=== PATIENT | male | born 1990 | race African-American/Black ===

== ENCOUNTER 2018-11-28 13:20 | Emergency (ER) | payer BC, MEDICAID ==
[~2018-11-28] VITALS: Ht 188 cm; Wt 68.0 kg
[2018-11-28 13:30] VITALS: BP 127/91
[2018-11-28] MEDS ORDERED: IBUPROFEN 800 MG TAB PO ONE (14:45)
== END 2018-11-28 14:58 | disposition home or self-care (01) ==
LOC: ER 13:20 → EDBD 13:20 → ER 14:58
DX: S60.221A Contusion of right hand, initial encounter (principal); S61.432A Puncture wound without foreign body of left hand, initial encounter; S09.93XA Unspecified injury of face, initial encounter; F17.210 Nicotine dependence, cigarettes, uncomplicated; V43.63XA Car passenger injured in collision with pick-up truck in traffic accident, initial encounter; Y93.89 Activity, other specified; Y99.8 Other external cause status; Y92.410 Unspecified street and highway as the place of occurrence of the external cause
CPT/HCPCS: 73110; 73130